=== PATIENT | female | born 1940 | race Caucasian/White ===

== ENCOUNTER 2016-06-14 13:17 | Emergency (ER) | payer OTHER ==
[2016-06-14 13:38] VITALS: BMI 25.4
--- NOTE | 2016-06-14 14:09 | PDOC ---
[id number] I have performed the following: I have examined & evaluated the patient, The case was reviewed & discussed with the resident, I agree w/resident's findings & plan, Exceptions are as noted - HPI HPI: 76 yo F hx HL, HTN, osteoarthritis, breast CA s/p lumpectomy presents with low back pain for past few days. Pain originates in the L lower back, worse with positional changes, bending over. Denies any trauma. No numbness, weakness. Pain improves with massage. - Physicial Exam PE: GENERAL: Awake, alert, and fully oriented, in no acute distress HEAD: No signs of trauma EYES: PERRLA, EOMI, sclera anicteric, conjunctiva clear ENT: Auricles normal inspection, hearing grossly normal, nares patent, oropharynx clear without exudates. Moist mucosa NECK: Normal ROM, supple, no lymphadenopathy, JVD, or masses LUNGS: Breath sounds equal, clear to auscultation bilaterally. No wheezes, and no crackles HEART: Regular rate and rhythm, normal S1 and S2, no murmurs, rubs or gallops ABDOMEN: Soft, nontender, normoactive bowel sounds. No guarding, no rebound. No masses. No CVAT. EXTREMITIES: Normal range of motion, no edema. No clubbing or cyanosis. No cords, erythema, or tenderness NEUROLOGICAL: Cranial nerves II through XII grossly intact. Normal speech, normal gait SKIN: Warm, Dry, normal turgor, no rashes or lesions noted. SPINE: No midline tenderness. +L soft tissue tenderness in the lumbar region. - Medical Decision Making Pt presents with low back pain, soft tissue tenderness. She declines pain medication. Will obtain XR lumbar spine, as she has not had recent imaging. Will also r/o UTI. She requested lumbar spine injection, which I explained would require a pain mgmt or control specialist. Will refer her as an outpatient.
--- NOTE | 2016-06-14 14:21 | PDOC ---
History of Present Illness - General Chief Complaint: Back Pain Stated Complaint: BACK PAIN Time Seen by Provider: 06/14/16 13:28 History Source: Patient Exam Limitations: No Limitations (medical specialist Mr. Phan who served as intepreter), Language Barrier - History of Present Illness Initial Comments: 76 yo F h/o HTN, HLD, osteoarthritis, L breast CA s/p lumpectomy presented to the ED with worsening L lower back pain for days. The pain is located in L medial lower back, reproducible, sharp, radiates to bilateral thighs, worse with bending over, better with massage. Denies n/v, fever, chills, sob, chest pain, urinary or bowel symptoms. Past History - Past Medical History Allergies/Adverse Reactions: Allergies Allergy/AdvReac Type Severity Reaction Status Date / Time No Known Allergies Allergy Verified 06/14/16 13:38 Home Medications: Ambulatory Orders Unobtainable [Unobtainable] 06/14/16 Cancer: Yes Hypercholesterolemia: Yes - Psycho/Social/Smoking Cessation Hx Anxiety: No Suicidal Ideation: No Smoking History: Never smoked Have you smoked in the past 12 months: No Information on smoking cessation initiated: No Hx Alcohol Use: No Drug/Substance Use Hx: No Substance Use Type: None Review of Systems - Review of Systems Able to Perform ROS?: Yes Is the patient limited Libyan proficient: No Constitutional: No: Chills, Fever HEENTM: No: Throat Pain, Throat Swelling Respiratory: No: Cough, Shortness of Breath Cardiac (ROS): No: Chest Pain ABD/GI: No: Nausea, Vomiting : No: Dysuria Musculoskeletal: Yes: Back Pain. No: Muscle Weakness Neurological: No: Numbness, Weakness *Physical Exam - Vital Signs Last Vital Signs Temp Pulse Resp BP Pulse Ox 97.6 F 76 18 97/55 96 06/14/16 13:31 06/14/16 13:31 06/14/16 13:31 06/14/16 13:31 06/14/16 13:31 - Physical Exam General Appearance: No: Apparent Distress HEENT: positive: EOMI, TONIE Neck: positive: Trachea midline, Supple Respiratory/Chest: positive: Lungs Clear, Normal Breath Sounds Cardiovascular: positive: Regular Rhythm, Regular Rate, S1, S2. negative: Systolic Murmur, Gallop/S3, Gallop/S4 Gastrointestinal/Abdominal: positive: Normal Bowel Sounds, Soft. negative: Distended, Guarding, Rebound, Tenderness Musculoskeletal: positive: Vertebral Tenderness, Other (negative straight leg test) Extremity: negative: Swelling, Calf Tenderness Medical Decision Making - Medical Decision Making 06/14/16 15:56 Lumbar and thoracic X-ray show bone spurs and degenerative changes. Will refer the patient to pain management. Awaits UA before discharge. 06/14/16 17:37 UA is negative. Patient will be discharged with appropriate instruction for pain management and follow up. *DC/Admit/Observation/Transfer Diagnosis at time of Disposition: Bone spur Osteoporosis Qualifiers: Osteoporosis type: age-related Presence of current pathological fracture: without current pathological fracture Qualified Code(s): M81.0 - Age-related osteoporosis without current pathological fracture - Discharge Dispostion Disposition: HOME Condition at time of disposition: Improved Admit: No - Referrals Referrals: Wendi Restrepo MD [Staff Physician] - - Patient Instructions Additional Instructions: You were seen in the ED due to worsening lower back pain. X-ray shows bone spurs and degenerative change due to old age and underlying osteoporosis. Please see the pain management physician for shelter management of your pain and cont. to follow up with your primary doctor. You may take over the counter alieve as needed. Come back to the ER if your symptoms continue to worsen.
[2016-06-14 16:44] LABS: URINE APPEARANCE CLEAR; URINE BILIRUBIN NEGATIVE (NEGATIVE); URINE BLOOD NEGATIVE (NEGATIVE); URINE COLOR STRAW; URINE GLUCOSE (UA) NEGATIVE (NEGATIVE); URINE KETONE TRACE (NEGATIVE); URINE LEUK ESTERASE NEGATIVE (NEGATIVE); URINE NITRITE NEGATIVE (NEGATIVE); URINE PROTEIN NEGATIVE (NEGATIVE); URINE UROBILINOGEN NEGATIVE E.U./dl (0.2-1.0)
[2016-06-14 17:58] VITALS: BP 130/78; PULSE 78; TEMP 97.9
== END 2016-06-14 17:58 | disposition home or self-care (01) ==
LOC: JER 13:17
DX: M46.05 Spinal enthesopathy, thoracolumbar region (principal); M81.0 Age-related osteoporosis without current pathological fracture; I10 Essential (primary) hypertension; E78.00 Pure hypercholesterolemia, unspecified; Z85.3 Personal history of malignant neoplasm of breast
CPT/HCPCS: 72070-TC; 72100-TC; 81003; 87086; 99283-25

== ENCOUNTER 2016-12-22 19:46 | Emergency (ER) | payer OTHER ==
[2016-12-22 20:01] VITALS: BP 130/81; PULSE 82; TEMP 98.1; BMI 24.4
--- NOTE | 2016-12-22 21:59 | PDOC ---
History of Present Illness - General History Source: Patient, Family Exam Limitations: No Limitations - History of Present Illness Initial Comments: 12/22/16 22:23 The patient is a 76 year old female with a significant PMH of hyperlipidemia, HTN, osteoarthritis, breast CA (s/p lumpectomy) and recently diagnosed Alzheimer s who presents to the emergency department with 3 days of abdominal pain and 1 day of fatigue. The patient describes the abdominal pain as localized in the epigastric area and intermittent, currently 3/10 in severity. The patient reports that the onset of her abdominal pain is associated with the presence of heat in her back. Her abdominal pain is also associated with 3 days of diarrhea, yellowish in color. The patient also reports waking up this morning and feeling significantly fatigued with a slight headache, being unable to walk around her house. The patient reports taking her recently prescribed Donepezil for the first time yesterday. The patient denies chest pain, shortness of breath, and dizziness. Denies fever, chills, vomit, and constipation. Denies dysuria, frequency, urgency and hematuria. Allergies: NKA Past surgical history: Lumpectomy. Social history: No reported cigarette, alcohol, or drug use. PCP: Dr. Cormier <Brandt Melo - Last Filed: 12/22/16 22:22> - General History Source: Patient <DanielSylvester amanda - Last Filed: 12/23/16 00:38> - General Chief Complaint: Nausea Stated Complaint: FATIGUE Time Seen by Provider: 12/22/16 20:46 Past History <Brandt Melo - Last Filed: 12/22/16 22:22> - Past Medical History Cancer: Yes Hypercholesterolemia: Yes - Suicide/Smoking/Psychosocial Hx Smoking History: Never smoked Have you smoked in the past 12 months: No Information on smoking cessation initiated: No Hx Alcohol Use: No Drug/Substance Use Hx: No Substance Use Type: None <Sylvester Patterson - Last Filed: 12/23/16 00:38> - Past Medical History Allergies/Adverse Reactions: Allergies Allergy/AdvReac Type Severity Reaction Status Date / Time No Known Allergies Allergy Verified 06/14/16 13:38 Home Medications: Ambulatory Orders Anastrozole [Arimidex -] 1 mg PO DAILY 12/22/16 Lipase/Protease/Amylase [Toni Rand 36,000 Units Capsule] 3,600 units PO ASDIR Lisinopril/Hydrochlorothiazide [Lisinopril-Hctz 10-12.5 mg Tab] 10 mg PO ASDIR 12/22/16 Loperamide HCl [Loperamide] 2 mg PO ASDIR 12/22/16 Meclizine HCl [Antivert -] 12.5 mg PO TID 12/22/16 Omeprazole 20 mg PO ASDIR 12/22/16 Pravastatin Sodium [Pravachol (Nf)] 40 mg PO HS 12/22/16 Pantoprazole Sodium [Protonix] 40 mg PO DAILY #30 tablet. 12/23/16 Review of Systems - Review of Systems Able to Perform ROS?: Yes Comments:: 12/22/16 22:23 CONSTITUTIONAL: (+) Generalized fatigue Absent: fever, chills, diaphoresis, malaise, loss of appetite HEENT: Absent: rhinorrhea, nasal congestion, throat pain, throat swelling, difficulty swallowing, mouth swelling, ear pain, eye pain, visual Changes CARDIOVASCULAR: Absent: chest pain, syncope, palpitations, irregular heart rate, lightheadedness , peripheral edema RESPIRATORY: Absent: cough, shortness of breath, dyspnea with exertion, orthopnea, wheezing, stridor, hemoptysis GASTROINTESTINAL: (+) Epigastric pain. (+) Diarrhea. Absent: abdominal distension, nausea, vomiting,, constipation, melena, hematochezia GENITOURINARY: Absent: dysuria, frequency, urgency, hesitancy, hematuria, flank pain, genital pain MUSCULOSKELETAL: Absent: myalgia, arthralgia, joint swelling SKIN: Absent: rash, itching, pallor HEMATOLOGIC/IMMUNOLOGIC: Absent: easy bleeding, easy bruising, lymphadenopathy, frequent infections ENDOCRINE: Absent: unexplained weight gain, unexplained weight loss, heat intolerance, cold intolerance NEUROLOGIC: (+) Headache. Absent: focal weakness or paresthesias, dizziness, unsteady gait, seizure, mental status changes, bladder or bowel incontinence PSYCHIATRIC: Absent: anxiety, depression, suicidal or homicidal ideation, hallucinations. <Brandt Melo - Last Filed: 12/22/16 22:22> *Physical Exam - Vital Signs Last Vital Signs Temp Pulse Resp BP Pulse Ox 98.1 F 82 19 130/81 98 12/22/16 19:59 12/22/16 19:59 12/22/16 19:59 12/22/16 19:59 12/22/16 19:59 - Physical Exam Comments: 12/22/16 22:23 GENERAL: Well developed, well nourished. Awake and alert. No acute distress. HEENT: Normocephalic, atraumatic. PERRLA, EOMI. No conjunctival pallor. Sclera are non- icteric. Moist mucous membranes. Oropharynx is clear. NECK: Supple. Full ROM. No JVD. Carotid pulses 2+ and symmetric, without bruits. No thyromegaly. No lymphadenopathy. CARDIOVASCULAR: Regular rate and rhythm. No murmurs, rubs, or gallops. Distal pulses are 2+ and symmetric. PULMONARY: No evidence of respiratory distress. Lungs clear to auscultation bilaterally. No wheezing, rales or rhonchi. ABDOMINAL: Soft. Nontender. Non-distended. No rebound or guarding. No organomegaly. Normoactive bowel sounds. MUSCULOSKELETAL Normal range of motion at all joints. No bony deformities or tenderness. No CVA tenderness. EXTREMITIES: No cyanosis. No clubbing. No edema. No calf tenderness. SKIN: Warm and dry. Normal capillary refill. No rashes. No jaundice. NEUROLOGICAL: Alert, awake, appropriate. Cranial nerves 2-12 intact. No deficits to light touch and temperature in face, upper extremities and lower extremities. No motor deficits in the in face, upper extremities and lower extremities. Normoreflexic in the upper and lower extremities. Normal speech. Toes are downgoing bilaterally. Gait is normal without ataxia. PSYCHIATRIC: Cooperative. Good eye contact. Appropriate mood and affect. <Brandt Melo - Last Filed: 12/22/16 22:22> - Vital Signs Last Vital Signs Temp Pulse Resp BP Pulse Ox 98.1 F 82 19 130/81 98 12/22/16 19:59 12/22/16 19:59 12/22/16 19:59 12/22/16 19:59 12/22/16 19:59 <Sylvester Patterson - Last Filed: 12/23/16 00:38> ED Treatment Course - LABORATORY CBC & Chemistry Diagram: 12/22/16 22:59 12/22/16 22:59 <Sylvester Patterson - Last Filed: 12/23/16 00:38> Medical Decision Making - Medical Decision Making 12/23/16 00:36 Dr. Patterson: The scribe's documentation has been prepared under my direction and personally reviewed by me in its entirery. I confirm that the note above accurately reflects all work, treatment, procedures, and medical decision making performed by me. <Sylvester Patterson - Last Filed: 12/23/16 00:38> *DC/Admit/Observation/Transfer - Attestations Scribe Attestion: 12/22/16 22:24 Documentation prepared by Brandt Melo, acting as medical office technologist for Sylvester Patterson DO. <Brandt Melo - Last Filed: 12/22/16 22:22> - Discharge Dispostion Admit: No <Sylvester Patterson - Last Filed: 12/23/16 00:38> Diagnosis at time of Disposition: Nausea - Discharge Dispostion Disposition: HOME Condition at time of disposition: Stable - Referrals Referrals: Keyla Slade MD [Primary Care Provider] - - Patient Instructions Printed Discharge Instructions: DI for Nausea -- Adult Additional Instructions: take medication as directed. Please follow up with your doctors for evaluation sedation of your medications Print Language: GEORGIAN
[2016-12-22] MEDS ORDERED: SODIUM CHLORIDE 1,000 ML IV STA (22:20)
[2016-12-22 23:02] LABS: BASOPHIL 0.8 % (0-2.0); EOSINOPHIL 1.7 % (0-4.5); MCH 31.6 pg (25.7-33.7); MCHC 33.5 g/dl (32.0-36.0); MEAN CELL VOLUME 94.1 fl (80-96); MEAN PLT VOLUME 11.5 fl (7.5-11.1); NEUTROPHILS 66.9 % (42.8-82.8); PLATELET COUNT 194 K/MM3 (134-434); RDW 13.6 % (11.6-15.6); WHITE BLOOD COUNT 6.4 K/mm3 (4.0-10.0)
[2016-12-22 23:12] LABS: INR 0.98 (0.82-1.09); PROTHROMBIN TIME (PATIENT) 11.1 SEC (9.98-11.88)
[2016-12-22 23:22] LABS: ANION GAP 11 (8-16); BILIRUBIN,TOTAL 0.3 mg/dL (0.2-1.0); CALCIUM 8.1 mg/dL (8.5-10.1); CO2 26 mmol/L (21-32); CREATININE 0.7 mg/dL (0.55-1.02); GLUCOSE,RANDOM 95 mg/dL (74-106); MAGNESIUM 2.5 mg/dL (1.8-2.4); SGOT/AST 13 U/L (15-37); SGPT/ALT 16 U/L (12-78)
[2016-12-22 23:25] LABS: ALK PHOS 70 U/L (45-117); CPK 59 IU/L (26-192); TROPONIN I < 0.02 ng/ml (0.00-0.05)
[2016-12-23 00:02] LABS: URINE APPEARANCE CLEAR; URINE BILIRUBIN NEGATIVE (NEGATIVE); URINE BLOOD NEGATIVE (NEGATIVE); URINE COLOR YELLOW; URINE GLUCOSE (UA) NEGATIVE (NEGATIVE); URINE KETONE NEGATIVE (NEGATIVE); URINE NITRITE NEGATIVE (NEGATIVE); URINE PROTEIN NEGATIVE (NEGATIVE); URINE UROBILINOGEN NEGATIVE mg/dL (0.2-1.0)
[2016-12-23] MEDS ORDERED: PANTOPRAZOLE 40 MG TABLET (FP) PO ONE (00:38)
[2016-12-23] MEDS ORDERED: PANTOPRAZOLE 40 MG TABLET (FP) ONE (00:40)
[2016-12-23 10:29] LABS: URINE LEUK ESTERASE TRACE (NEGATIVE)
[2016-12-23 10:31] LABS: URINE BACTERIA FEW /hpf (NEGATIVE); URINE RBC 0-3 /hpf (0-3); URINE WBC 0-3 /hpf (3-5)
== END 2016-12-23 00:49 | disposition home or self-care (01) ==
LOC: JERFT 19:46 → JER 19:46
PROC: 3E0337Z Introduction of Electrolytic and Water Balance Substance into Peripheral Vein, Percutaneous Approach (ICD-10-PCS; principal; 2016-12-22)
DX: R11.0 Nausea (principal); I10 Essential (primary) hypertension; E78.00 Pure hypercholesterolemia, unspecified; M19.90 Unspecified osteoarthritis, unspecified site; G30.9 Alzheimer's disease, unspecified; F02.80 Dementia in other diseases classified elsewhere, unspecified severity, without behavioral disturbance, psychotic disturbance, mood disturbance, and anxiety; Z85.3 Personal history of malignant neoplasm of breast
CPT/HCPCS: 36415; 80053; 81003; 81015; 82550; 83690; 83735; 84484; 85025; 85610; 87086; 99281-25